=== PATIENT | male | born 1990 | race Caucasian/White ===

== ENCOUNTER → 2016-12-08 | Outpatient (CLI) | payer OTHER ==
[~2016-12-08] MED LIST: CONRAY-43 43% 50ML VIAL (Q9960) As Ordered ONE
--- NOTE | 2016-12-08 10:52 | REP ---
MR arthrography right shoulder: with pre and post intra-articular gadolinium enhanced saline injected imaging: History: Right shoulder pain. Injury in a fall in 2016. No comparison radiographs. Technique: The injection procedure is performed and dictated separately. Pre and post intra-articular gadolinium enhanced saline injected imaging is acquired. Imaging planes include axial, oblique coronal, oblique sagittal and ABER projection images. T1 T2-weighted scans are included with and without fat saturation. MRI findings: pre injection MR imaging demonstrates subcortical cyst formation in the superolateral aspect of the humeral head. There is no evidence of Hill-Sachs or other fracture. Glenohumeral and acromioclavicular joints are normally aligned. No significant joint effusion is seen. A small sliver of subacromial subdeltoid bursal fluid is seen. Post injection MR imaging shows good filling and enhancement of the right glenohumeral articulation. No loose body is seen. There is no evidence of rotator cuff tear. The infraspinatus, subscapularis, and biceps tendons appear intact. No anterior labral tear is appreciated. Superior labrum appears intact. No labral tear is appreciated. There is no evidence of rotator cuff tear on post injection T1-weighted fat sat imaging. Impression: Subcortical cyst formation in the superolateral humeral head. Minimal subacromial subdeltoid bursal effusion. No evidence of internal derangement seen. Signed by Blaise Landaverde MD 12/08/2016 11:34 A
--- NOTE | 2016-12-08 16:50 | REP ---
Procedure: Right shoulder arthrogram The procedure was performed under the direct supervision of Dr. Landaverde. History: Right shoulder pain The benefits and risks including but not limited to pain, infection, bleeding and anaphylaxis were explained to the patient and informed consent was obtained. Technique: The right glenohumeral joint space was localized using fluoroscopic guidance. The skin was prepped and draped in a sterile fashion. 1% lidocaine was used as a local anesthetic. Using fluoroscopic guidance a 22 gauge spinal needle was inserted and advanced into the joint. 0.5 ml of Conray 43 was injected to verify placement. 11 ml of a solution containing 20 ml of sterile saline and 0.15 ml of ProHance was injected into the joint. The needle was removed and the patient was taken to MRI for postprocedural imaging. The the patient tolerated the procedure well and there were no immediate complications. 1 second of fluoro time was utilized for this procedure. Reviewed by ALANA Nur 12/08/2016 11:43 ASigned by Blaise Landaverde MD 12/08/2016 04:41 P
== END ==
LOC: M RADPRO 07:22
PROVIDERS: ATTEND Neuromusculoskeletal Medicine & OMM
DX: M25.511 Pain in right shoulder (principal); M85.60 Other cyst of bone, unspecified site; M25.411 Effusion, right shoulder
CPT/HCPCS: 23350; 73223; 77002; A9576; Q9960